=== PATIENT | female | born 1985 | race Caucasian/White ===

== ENCOUNTER 2016-10-03 06:53 | Emergency (ER) | payer OTHER, MEDICAID ==
[~2016-10-03] VITALS: Ht 170.2 cm; Wt 84.0 kg
[~2016-10-03 06:53] MED LIST: ALBU8I INH; METH5SOL3 PO; PRED20 PO; PREN0.01 PO; UNIS25TA2 PO; XANA0.5T PO
[2016-10-03] MEDS ORDERED: SODIUM CHLOR 0.9% 1000 ML INJ 1,000 ML IV SCH (07:08)
[2016-10-03 07:10] VITALS: BP 147/85; PULSE 69; RESP 14; TEMP 97.7; O2SAT 98
[2016-10-03] MEDS ORDERED: METH40TA PO (07:12)
[2016-10-03 07:15] VITALS: O2SAT 98
[2016-10-03] MEDS ORDERED: SODIUM CHLORIDE 0.9% FLUSH 10 ML FLUSH IVF PRN (07:15)
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
[2016-10-03 08:16] LABS: AUTOMATED NEUTROPHIL # 7.8 TH/MM3 (1.8-7.7); BASOPHIL # 0.6 TH/MM3 (0-0.2); BASOPHIL % 5.9 % (0.0-2.0); EOSINOPHIL # 0.1 TH/MM3 (0-0.4); EOSINOPHIL % 0.7 % (0.0-4.0); LYMPH % 16.9 % (9.0-44.0); LYMPHOCYTE # 1.9 TH/MM3 (1.0-4.8); MEAN CORPUSCULAR HEMOGLOBIN 28.3 PG (27.0-34.0); MEAN CORPUSCULAR HGB CONC 33.7 % (32.0-36.0); MONO % 5.5 % (0.0-8.0); PLATELET COUNT 226 TH/MM3 (150-450); RED BLOOD COUNT 4.65 MIL/MM3 (4.00-5.30); RED CELL DISTRIBUTION WIDTH 12.1 % (11.6-17.2)
[2016-10-03 08:22] LABS: HEMO FLAGS AUTO DIFF
[2016-10-03 08:25] LABS: CHLORIDE 104 MEQ/L (98-107); SODIUM (NA) 135 MEQ/L (136-145)
[2016-10-03 08:28] LABS: ANION GAP 5 MEQ/L (5-15); BICARBONATE 26.5 MEQ/L (21.0-32.0); BLOOD UREA NITROGEN 17 MG/DL (7-18)
[2016-10-03 08:29] LABS: APTT (PATIENT) 26.6 SEC (24.3-30.1); PROTHROMBIN TIME - PATIENT 10.8 SEC (9.8-11.6)
[2016-10-03 08:31] LABS: ALCOHOL LESS THAN 3 MG/DL (0-5); GLOMERULAR FILTRATION RATE 98 ML/MIN (>89)
[2016-10-03 08:54] LABS: EOSINOPHILS 1 % (0-4); NEUTROPHIL # MANUAL DIFF 8.8 TH/MM3 (1.8-7.7); POLYS (SEG NEUTROPHILS) 80 % (16-70); SCAN/DIFF FINAL DIFF MANUAL; WBC DIFF SAMPLE 100
--- NOTE | 2016-10-03 08:58 | PD ---
Data Data Last Documented VS Vital Signs Date Time Temp Pulse Resp B/P (MAP) Pulse Ox O2 Delivery O2 Flow Rate FiO2 10/03/16 07:15 98 Nasal Cannula 2.00 10/03/16 07:10 97.7 69 14 147/85 (105) Orders Orders Basic Metabolic Panel (Bmp) (10/03/16 07:08) Complete Blood Count With Diff (10/03/16 07:08) Prothrombin Time / Inr (Pt) (10/03/16 07:08) Act Partial Throm Time (Ptt) (10/03/16 07:08) Type And Screen (10/03/16 07:08) Alcohol (Ethanol) (10/03/16 07:08) Urinalysis - C+S If Indicated (10/03/16 07:08) Drug Screen, Random Urine (10/03/16 07:08) Chest, Single Ap (10/03/16 07:08) Ct Brain W/O Iv Contrast(Rout) (10/03/16 07:08) Ct Cerv Spine W/O Contrast (10/03/16 07:08) Ct Abd/Pel W Iv Contrast(Rout) (10/03/16 07:08) Ct Thorax/ Chest W Iv Contrast (10/03/16 07:08) Iv Access Insert/Monitor (10/03/16 07:08) Ecg Monitoring (10/03/16 07:08) Oximetry (10/03/16 07:08) Oxygen Administration (10/03/16 07:08) Remove Backboard (10/03/16 07:08) Sodium Chlor 0.9% 1000 Ml Inj (Ns 1000 M (10/03/16 07:08) Sodium Chloride 0.9% Flush (Ns Flush) (10/03/16 07:15) Wrist, Complete ([id number]) (10/03/16 07:08) Hip, Uni(Ap&Lat) W Ap Pelvis (10/03/16 07:08) Resp Lab Draw Arterial Punctur (10/03/16 ) Labs Laboratory Tests Test 10/03/16 08:10 White Blood Count 11.0 TH/MM3 Red Blood Count 4.65 MIL/MM3 Hemoglobin 13.1 GM/DL Hematocrit 39.0 % Mean Corpuscular Volume 84.0 FL Mean Corpuscular Hemoglobin 28.3 PG Mean Corpuscular Hemoglobin Concent 33.7 % Red Cell Distribution Width 12.1 % Platelet Count 226 TH/MM3 Mean Platelet Volume 8.1 FL Neutrophils (%) (Auto) 71.0 % Lymphocytes (%) (Auto) 16.9 % Monocytes (%) (Auto) 5.5 % Eosinophils (%) (Auto) 0.7 % Basophils (%) (Auto) 5.9 % Neutrophils # (Auto) 7.8 TH/MM3 Lymphocytes # (Auto) 1.9 TH/MM3 Monocytes # (Auto) 0.6 TH/MM3 Eosinophils # (Auto) 0.1 TH/MM3 Basophils # (Auto) 0.6 TH/MM3 CBC Comment AUTO DIFF Differential Total Cells Counted 100 Neutrophils % (Manual) 80 % Lymphocytes % 15 % Monocytes % 4 % Eosinophils % 1 % Neutrophils # (Manual) 8.8 TH/MM3 Differential Comment FINAL DIFF MANUAL Prothrombin Time 10.8 SEC Prothromb Time International Ratio 1.0 RATIO Activated Partial Thromboplast Time 26.6 SEC Blood Urea Nitrogen 17 MG/DL Creatinine 0.70 MG/DL Random Glucose 107 MG/DL Calcium Level 8.7 MG/DL Sodium Level 135 MEQ/L Potassium Level 4.0 MEQ/L Chloride Level 104 MEQ/L Carbon Dioxide Level 26.5 MEQ/L Anion Gap 5 MEQ/L Estimat Glomerular Filtration Rate 98 ML/MIN Ethyl Alcohol Level LESS THAN 3 MG/DL MDM Supervised Visit with ANIRUDH: No Narrative Course Because of difficult IV access, was asked by my colleague Dr. Richards to place an ultrasound-guided IV. Procedures Procedure Narrative Ultrasound-guided peripheral IV: Using the linear ultrasound probe for guidance, a 20-gauge IV catheter was placed in the left arm. Site prepped with ChloraPrep prior to insertion. Tolerated well. No complications. Jarrod Dennis MD Oct 03, 2016 08:58
[2016-10-03 09:00] VITALS: BP 114/67; PULSE 61; RESP 16; O2SAT 98
[2016-10-03] MEDS ORDERED: IOHEXOL 350 MG/ML 10 ML VIAL (for RAD DIAG) IVCONTRAST ONE (09:28)
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
[2016-10-03] MEDS ORDERED: IBUP-1129 PO (10:30)
[2016-10-03] MEDS ORDERED: IBUPROFEN 600 MG TAB PO ONE (11:30)
[2016-10-03 11:45] VITALS: BP 101/57; PULSE 74; RESP 18; O2SAT 98
== END 2016-10-03 11:50 | disposition home or self-care (01) ==
LOC: PHED 06:53
DX: S32.039A Unspecified fracture of third lumbar vertebra, initial encounter for closed fracture (principal); S30.810A Abrasion of lower back and pelvis, initial encounter; M25.551 Pain in right hip; M25.531 Pain in right wrist; V28.5XXA Motorcycle passenger injured in noncollision transport accident in traffic accident, initial encounter
CPT/HCPCS: 36600; 70450; 71010; 71260; 72125; 73110; 73502; 74177; 80048; 80307; 85007; 85027; 85610; 85730; 86850; 86900; 86901; 96360; 96361; 99285; J7030; Q9967

== ENCOUNTER 2017-04-02 18:11 | Emergency (ER) | payer MEDICAID ==
[~2017-04-02] VITALS: Ht 170.2 cm; Wt 98.0 kg
[~2017-04-02 18:11] MED LIST changes: -ALBU8I INH; +IBUP-1129 PO; +METH40TA PO; -METH5SOL3 PO; -PRED20 PO; -PREN0.01 PO; -UNIS25TA2 PO; -XANA0.5T PO
[2017-04-02 18:18] VITALS: BP 148/91; PULSE 102; RESP 19; TEMP 100.4; O2SAT 98
[2017-04-02] MEDS ORDERED: METH10TA PO (18:32)
--- NOTE | 2017-04-02 18:35 | PD ---
HPI Chief Complaint: Cold / Flu Symptoms Time Seen by Provider: 18:35 Travel History International Travel<30 days: No Contact w/Intl Traveler<30days: No Traveled to known affect area: No History of Present Illness HPI 31-year-old female came to the emergency room with history of shortness of breath, cough, fever and generalized myalgia for past almost 1 week. Patient says that her daughter who has been sick with similar symptoms and she has been taking care of her. Patient also developed wheezing. She does have history of asthma and her friend that her both oral her nebulizer. She had a temperature of 100.4 in triage. She took ibuprofen about 3-4 hours ago. 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 She is on methadone currently. Noticed that she has been developing some lesions and scabs all over her body. She denied using any IV drugs now. [facility] Past Medical History Narrative Medical List of her past medical, surgical, social and family history is reviewed from the nursing note. Asthma: Yes Blood Disorders: No Anxiety: Yes Depression: Yes Cancer: No Cardiovascular Problems: No Diminished Hearing: No Endocrine: No Genitourinary: No Hepatitis: Yes (C) Immune Disorder: No Musculoskeletal: Yes Neurologic: No Psychiatric: No Reproductive: Yes (leep x2) Respiratory: Yes (ASTHMA) Immunizations Current: Yes Seizures: Yes Tetanus Vaccination: < 5 Years Influenza Vaccination: No ?: Not LMP: 10 DAYS AGO : 3 Para: 1 Miscarriage: 1 : 1 Past Surgical History Abdominal Surgery: No Appendectomy: Yes Cardiac Surgery: No Section: Yes Ear Surgery: No Endocrine Surgery: No Eye Surgery: Yes (Sx correction of "lazy eyes" as child) Genitourinary Surgery: No Gynecologic Surgery: Yes (Leep X's 2) Hysterectomy: Yes Oral Surgery: No Thoracic Surgery: No Other Surgery: Yes (REMOVAL OF ABNORMAL CELLS) Social History Alcohol Use: No Tobacco Use: No Substance Use: No (Former IVDA) Allergies-Medications (Allergen,Severity, Reaction): Coded Allergies: penicillin G (Unverified Allergy, Severe, Hives, 04/07/17) codeine (Unverified Adverse Reaction, Severe, N/V, BAUTISTA, 04/07/17) Comments List of her allergies reviewed from the nursing note. Reported Meds & Prescriptions Reported Meds & Active Scripts Active Ventolin Hfa 18 GM Inh (Albuterol Sulfate) 90 Mcg/Act Aer 2 Puff INH Q4-6H PRN Albuterol Neb (Albuterol Sulfate) 2.5 Mg/0.5 Ml Neb 2.5 Mg NEB Q6HR NEB Note: The Albuterol Sulfate Inhalation Solution is concentrated and must be diluted. Read complete instructions carefully before using. Narrative Medication List of her home medications reviewed from the nursing note. Review of Systems Except as stated in HPI: all other systems reviewed are Neg General / Constitutional: Positive: Fever, Chills Respiratory: Positive: Shortness of Breath Musculoskeletal: Positive: Myalgias Physical Exam Narrative GENERAL: Awake, alert, mild distress SKIN: Focused skin assessment warm/dry. Circular scabs on the chest and bilateral upper extremities that are more than 5 in number HEAD: Atraumatic. Normocephalic. EYES: Pupils equal and round. No scleral icterus. No injection or drainage. ENT: No nasal bleeding or discharge. Mucous membranes pink and moist. NECK: Trachea midline. No JVD. CARDIOVASCULAR: Regular rate and rhythm. No murmur appreciated. RESPIRATORY: Decreased air entry bilaterally with end expiratory wheeze GASTROINTESTINAL: Abdomen soft, non-tender, nondistended. Hepatic and splenic margins not palpable. MUSCULOSKELETAL: No obvious deformities. No clubbing. No cyanosis. No edema. NEUROLOGICAL: Awake and alert. No obvious cranial nerve deficits. Motor grossly within normal limits. Normal speech. PSYCHIATRIC: Appropriate mood and affect; insight and judgment normal. Data Data Last Documented VS Orders Orders Influenzae A/B Antigen (04/02/17 18:41) Acetaminophen (Tylenol) (04/02/17 18:45) Albuterol Neb (Albuterol Neb) (04/02/17 18:45) Ed Discharge Order (04/02/17 19:38) [facility] Medical Decision Making Medical Screen Exam Complete: Yes Emergency Medical Condition: Yes Medical Record Reviewed: Yes Differential Diagnosis Influenza, viral illness, staph infection, reactive airway disease Narrative Course 7:34 PM patient was given 2 albuterol nebulizer. I've given her Tylenol for the fever. Her flu swab is negative. I'll discharge her home on prescription and instructions. Procedures EKG Prior to Arrival: No Diagnosis Primary Impression: Viral illness Additional Impression: Asthma exacerbation Qualified Codes: J45.41 - Moderate persistent asthma with (acute) exacerbation Referrals: Primary Care Physician Additional Instructions: Follow-up with your primary care physician. Treated for viral infection symptomatically which means may have a fever you can take Tylenol/Motrin/ ibuprofen/Advil. Drink lots of fluid. Take the nebulizer as per the prescription direction. Return to ER if condition worsens or any other new concerns. Med/Other Pt SpecificInfo: Prescription(s) given Scripts Albuterol 18 GM Inh (Ventolin Hfa 18 GM Inh) 90 Mcg/Act Aer 2 PUFF INH Q4-6H Y for SHORTNESS OF BREATH, #1 INHALER 0 Refills Prov: Rosemarie Deng MD 04/02/17 Albuterol Neb (Albuterol Neb) 2.5 Mg/0.5 Ml Neb 2.5 MG NEB Q6HR NEB, #30 BOX Note: The Albuterol Sulfate Inhalation Solution is concentrated and must be diluted. Read complete instructions carefully before using. Prov: Rosemarie Deng MD 04/02/17 Disposition: 01 DISCHARGE HOME Condition: Stable Rosemarie Deng MD Apr 02, 2017 18:35
[2017-04-02] MEDS ORDERED: ACETAMINOPHEN 325 MG TAB PO ONE (18:45)
[2017-04-02] MEDS: RESP: ALBUTEROL 2.5 MG/3 ML NEB (SCH) INH (18:58)
[2017-04-02 19:05] VITALS: BP 134/72; PULSE 94; RESP 16; O2SAT 97
[2017-04-02] MEDS ORDERED: ALBU.5I NEB (19:38)
[2017-04-02] MEDS ORDERED: VENTAER INH (19:55)
[2017-04-02 20:00] VITALS: BP 146/72
== END 2017-04-02 20:05 | disposition home or self-care (01) ==
LOC: PHED 18:11
DX: B34.9 Viral infection, unspecified (principal); J45.41 Moderate persistent asthma with (acute) exacerbation; F41.9 Anxiety disorder, unspecified; F32.9 Major depressive disorder, single episode, unspecified; B19.20 Unspecified viral hepatitis C without hepatic coma
CPT/HCPCS: 87804; 94640; 94664; 99283; J7613

== ENCOUNTER 2017-04-07 20:01 | Emergency (ER) | payer MEDICAID ==
[~2017-04-07] VITALS: Ht 170.2 cm; Wt 94.7 kg
[~2017-04-07 20:01] MED LIST changes: +ALBU.5I NEB; -IBUP-1129 PO; +METH10TA PO; -METH40TA PO; +VENTAER INH
[2017-04-07 20:20] VITALS: BP 126/83; PULSE 117; RESP 18; TEMP 100.1; O2SAT 92
--- NOTE | 2017-04-07 21:41 | PD ---
HPI Chief Complaint: Fever Time Seen by Provider: 21:32 Travel History International Travel<30 days: No Contact w/Intl Traveler<30days: No Traveled to known affect area: No History of Present Illness HPI 31-year-old female with history of asthma presents to the emergency department prior to her transfer and for evaluation of progressively worsening symptoms over the past 7 days with fever chills myalgias arthralgias cough congestion wheezing and generalized weakness. Patient states she was seen in the emergency department partially 4 days ago flu test was negative she was given a refill on her inhaler and states over the past 2 days she is continued to have fever of 10 2F daily and has had decreased urine output even though she states she has increased her oral hydration. Patient also has history of ADHD mood disorder and anxiety. Patient states she has been taking her medications as prescribed. Patient reports she recently discontinued methadone use. PFSH Past Medical History Narrative Medical Asthma ADHD mood disorder seizure; LEEP; no tobacco; nursing notes reviewed Asthma: Yes Blood Disorders: No Anxiety: Yes Depression: Yes Cancer: No Cardiovascular Problems: No Diminished Hearing: No Endocrine: No Genitourinary: No Hepatitis: Yes (C) Immune Disorder: No Musculoskeletal: Yes Neurologic: No Psychiatric: No Reproductive: Yes (leep x2) Respiratory: Yes (ASTHMA) Immunizations Current: Yes Seizures: Yes ?: Unknown LMP: 03/15/17 : 3 Para: 1 Miscarriage: 1 : 1 Past Surgical History Abdominal Surgery: No Appendectomy: Yes Cardiac Surgery: No Section: Yes Ear Surgery: No Endocrine Surgery: No Eye Surgery: Yes (Sx correction of "lazy eyes" as child) Genitourinary Surgery: No Gynecologic Surgery: Yes (Leep X's 2) Hysterectomy: Yes Oral Surgery: No Thoracic Surgery: No Other Surgery: Yes (REMOVAL OF ABNORMAL CELLS) Social History Alcohol Use: No Tobacco Use: No Substance Use: No (Former IVDA) Allergies-Medications (Allergen,Severity, Reaction): Coded Allergies: penicillin G (Unverified Allergy, Severe, Hives, 04/07/17) codeine (Unverified Adverse Reaction, Severe, N/V, BAUTISTA, 04/07/17) Reported Meds & Prescriptions Reported Meds & Active Scripts Active Ventolin Hfa 18 GM Inh (Albuterol Sulfate) 90 Mcg/Act Aer 2 Puff INH Q4-6H PRN Albuterol Neb (Albuterol Sulfate) 2.5 Mg/0.5 Ml Neb 2.5 Mg NEB Q6HR NEB Note: The Albuterol Sulfate Inhalation Solution is concentrated and must be diluted. Read complete instructions carefully before using. Review of Systems Except as stated in HPI: all other systems reviewed are Neg General / Constitutional: Positive: Fever, Chills HENT: Positive: Congestion Cardiovascular: No: Chest Pain or Discomfort Respiratory: Positive: Cough, Shortness of Breath, Wheezing Gastrointestinal: Positive: Nausea, No: Vomiting, Abdominal Pain Genitourinary: Positive: Frequency, Decreased Urinary Output Musculoskeletal: Positive: Myalgias, Arthralgias Skin: No Rash Neurologic: Positive: Weakness, No: Seizures Psychiatric: No: Anxiety Hematologic/Lymphatic: No: Lymph Node Enlargement Physical Exam Narrative GENERAL: Well-developed well-nourished female no acute distress or respiratory distress SKIN: Warm and dry. HEAD: Normocephalic. EYES: No scleral icterus. No injection or drainage. NECK: Supple, trachea midline. No JVD or lymphadenopathy. CARDIOVASCULAR: Increased regular rate and rhythm without murmurs, gallops, or rubs. RESPIRATORY: Breath sounds equal bilaterally few expiratory wheezes. No accessory muscle use. GASTROINTESTINAL: Abdomen soft, non-tender, nondistended. MUSCULOSKELETAL: No cyanosis, or edema. BACK: Nontender without obvious deformity. No CVA tenderness. Data Data Last Documented VS Vital Signs Date Time Temp Pulse Resp B/P (MAP) Pulse Ox O2 Delivery O2 Flow Rate FiO2 04/08/17 02:46 99 16 107/79 (88) 95 04/08/17 01:30 99.8 Room Air Orders Orders Complete Blood Count With Diff (04/07/17 21:32) Comprehensive Metabolic Panel (04/07/17 21:32) Group A Rapid Strep Screen (04/07/17 21:32) Influenzae A/B Antigen (04/07/17 21:32) Chest, Single Ap (04/07/17 21:32) Iv Access Insert/Monitor (04/07/17 21:32) Oximetry (04/07/17 21:32) Sodium Chloride 0.9% Flush (Ns Flush) (04/07/17 21:45) Sodium Chlor 0.9% 1000 Ml Inj (Ns 1000 M (04/07/17 21:45) Ed Urine Pregnancytest Poc (04/07/17 21:32) Urinalysis - C+S If Indicated (04/07/17 21:32) Albuterol-Ipratropium Neb (Duoneb Neb) (04/07/17 21:45) Blood Culture (04/07/17 21:32) Lactic Acid (04/07/17 21:32) Strep Culture (Group A) (04/07/17 22:20) Ondansetron Odt (Zofran Odt) (04/08/17 00:30) Acetaminophen (Tylenol) (04/08/17 00:30) Ed Discharge Order (04/08/17 03:06) Labs Laboratory Tests Test 04/07/17 22:10 04/07/17 23:21 Urine Color YELLOW Urine Turbidity CLEAR Urine pH 5.0 Urine Specific Gorman 1.024 Urine Protein TRACE mg/dL Urine Glucose (UA) NEG mg/dL Urine Ketones 15 mg/dL Urine Occult Blood NEG Urine Nitrite NEG Urine Bilirubin NEG Urine Leukocyte Esterase NEG Urine WBC 0-2 /hpf Urine Squamous Epithelial Cells 0-5 /hpf Urine Amorphous Sediment SMALL Urine Mucus FEW /lpf Microscopic Urinalysis Comment CULT NOT INDICATED White Blood Count 10.9 TH/MM3 Red Blood Count 4.55 MIL/MM3 Hemoglobin 12.6 GM/DL Hematocrit 37.8 % Mean Corpuscular Volume 83.0 FL Mean Corpuscular Hemoglobin 27.7 PG Mean Corpuscular Hemoglobin Concent 33.4 % Red Cell Distribution Width 12.2 % Platelet Count 172 TH/MM3 Mean Platelet Volume 8.3 FL Neutrophils (%) (Auto) 69.1 % Lymphocytes (%) (Auto) 20.9 % Monocytes (%) (Auto) 5.9 % Eosinophils (%) (Auto) 0.0 % Basophils (%) (Auto) 4.1 % Neutrophils # (Auto) 7.6 TH/MM3 Lymphocytes # (Auto) 2.3 TH/MM3 Monocytes # (Auto) 0.6 TH/MM3 Eosinophils # (Auto) 0.0 TH/MM3 Basophils # (Auto) 0.4 TH/MM3 CBC Comment DIFF FINAL Differential Comment Blood Urea Nitrogen 8 MG/DL Creatinine 0.56 MG/DL Random Glucose 92 MG/DL Total Protein 8.1 GM/DL Albumin 3.4 GM/DL Calcium Level 8.1 MG/DL Alkaline Phosphatase 60 U/L Aspartate Amino Transf (AST/SGOT) 56 U/L Alanine Aminotransferase (ALT/SGPT) 48 U/L Total Bilirubin 0.4 MG/DL Sodium Level 131 MEQ/L Potassium Level 3.4 MEQ/L Chloride Level 97 MEQ/L Carbon Dioxide Level 24.5 MEQ/L Anion Gap 10 MEQ/L Estimat Glomerular Filtration Rate 126 ML/MIN Lactic Acid Level 0.7 mmol/L MDM Medical Decision Making Medical Screen Exam Complete: Yes Emergency Medical Condition: Yes Medical Record Reviewed: Yes Interpretation(s) Lactic acid 0.7, not elevated [id number] hCG negative Rapid strep antigen: Negative Last Impressions Chest X-Ray 04/07/172131 Signed Impressions: Service Date/Time: Friday, April 07, 2017 21:42 - CONCLUSION: No acute cardiopulmonary abnormality is identified. Mert Pagan MD CBC & BMP Diagram 04/07/17 23:21 Total Protein 8.1, Albumin 3.4, Calcium Level 8.1 L, Alkaline Phosphatase 60, Aspartate Amino Transf (AST/SGOT) 56 H, Alanine Aminotransferase (ALT/SGPT) 48, Total Bilirubin 0.4 Vital Signs Date Time Temp Pulse Resp B/P (MAP) Pulse Ox O2 Delivery O2 Flow Rate FiO2 04/08/17 02:46 99 16 107/79 (88) 95 04/08/17 01:45 16 04/08/17 01:30 99.8 104 16 113/68 (83) 94 Room Air 04/08/17 00:28 99.7 104 18 111/62 (78) 95 Room Air 04/07/17 23:25 104 18 117/65 (82) 96 Room Air 04/07/17 22:25 109 18 140/84 (102) 95 Room Air 04/07/17 21:45 104 18 94 Room Air 04/07/17 21:25 18 92 Room Air 04/07/17 20:20 100.1 117 18 126/83 (97) 92 Influenza A/B antigen: Negative Differential Diagnosis Viral syndrome, pneumonia, bronchitis, influenza, renal insufficiency, sirs, sepsis, dehydration, electrolyte disturbance, UTI, Narrative Course IV access obtained specimens collected and sent for resulting; DuoNeb updraft administered along with bolus of normal saline Patient resting comfortably taking oral hydration well patient very difficult IV access but not unstable enough to support insertion of central line will obtain specimens to arterial stick and will assess patient after oral hydration and diagnostic results Lab values found to be in normal range Patient taking oral hydration well resting comfortably voicing no concerns or complaints Patient stable for outpatient management Diagnosis Primary Impression: Bronchitis Referrals: Primary Care Physician call for appointment Patient Instructions: General Instructions Additional Instructions: Increase fluid hydration Take acetaminophen as needed for fever 100.4F or greater Take ibuprofen every 6-8 hours as needed for fever 100.4F or greater Do not restart methadone while taking oral antibiotic doxycycline or Zofran for nausea and/or vomiting Complete Medrol Dosepak and use the rescue inhaler as needed for wheezing or shortness of breath Return to the emergency department for any concerns or change in condition Disposition: 01 DISCHARGE HOME Condition: Stable Akiko Vega MD Apr 07, 2017 21:41
[2017-04-07 21:45] VITALS: PULSE 104; RESP 18; O2SAT 94
[2017-04-07] MEDS ORDERED: SODIUM CHLORIDE 0.9% FLUSH 10 ML FLUSH IVF PRN (21:45)
[2017-04-07] MEDS ORDERED: SODIUM CHLOR 0.9% 1000 ML INJ 1,000 ML IV ONE (21:45)
[2017-04-07] MEDS ORDERED: RESP: ALBUTEROL 2.5 MG/IPRATROPIUM 0.5 MG NEB (SCH) NEB ONE (21:45)
--- NOTE | 2017-04-07 22:00 | RADRPT ---
EXAM DATE/TIME: 04/07/2017 21:42 [place] COMPARISON: CHEST SINGLE AP, October 03, 2016, 7:32. INDICATIONS : Fever and cough. MEDICAL HISTORY : Gastroesophageal reflux disease. SURGICAL HISTORY : Appendectomy. LEEP. ENCOUNTER: Initial ACUITY: 1 week PAIN SCORE: 8/10 LOCATION: Bilateral chest superior FINDINGS: Portable AP view of the chest demonstrates a normal-sized cardiac silhouette. No effusion, consolidat ion, or pneumothorax is visualized. The bones and soft tissues demonstrate no acute abnormality. CONCLUSION: No acute cardiopulmonary abnormality is identified. Mert Pagan MD on April 07, 2017 at 21:58 Board Certified Radiologist. This report was verified electronically.
[2017-04-07 22:25] VITALS: BP 140/84; PULSE 109; RESP 18; O2SAT 95
[2017-04-07 23:05] LABS: BLOOD, URINE NEG (NEG); GLUCOSE,URINE NEG (NEG); KETONE, URINE 15 mg/dL (NEG); NITRITE,URINE NEG (NEG); URINE LEUKOCYTE ESTERASE NEG (NEG)
[2017-04-07 23:19] LABS: BILIRUBIN, URINE NEG (NEG)
[2017-04-07 23:25] VITALS: BP 117/65; PULSE 104; RESP 18; O2SAT 96
[2017-04-07 23:28] LABS: URINE COLOR YELLOW (YELLW/STRAW)
[2017-04-07 23:30] LABS: SQUAMOUS EPITHELIAL CELL URINE 0-5 /hpf (0-5); WBC, URINE 0-2 /hpf (0-5)
[2017-04-07 23:31] LABS: AMORPHOUS SEDIMENT, URINE SMALL; MUCUS URINE FEW /lpf (OCC)
[2017-04-07 23:40] LABS: AUTOMATED NEUTROPHIL # 7.6 TH/MM3 (1.8-7.7); BASOPHIL # 0.4 TH/MM3 (0-0.2); BASOPHIL % 4.1 % (0.0-2.0); HEMATOCRIT 37.8 % (35.0-46.0); HEMOGLOBIN 12.6 GM/DL (11.6-15.3); LYMPH % 20.9 % (9.0-44.0); LYMPHOCYTE # 2.3 TH/MM3 (1.0-4.8); MEAN CORPUSCULAR HEMOGLOBIN 27.7 PG (27.0-34.0); MEAN CORPUSCULAR HGB CONC 33.4 % (32.0-36.0); MEAN PLATELET VOLUME 8.3 FL (7.0-11.0); MONO % 5.9 % (0.0-8.0); MONOCYTE # 0.6 TH/MM3 (0-0.9); NEUT % 69.1 % (16.0-70.0); PLATELET COUNT 172 TH/MM3 (150-450); RED BLOOD COUNT 4.55 MIL/MM3 (4.00-5.30); RED CELL DISTRIBUTION WIDTH 12.2 % (11.6-17.2); WHITE BLOOD COUNT 10.9 TH/MM3 (4.0-11.0)
[2017-04-07 23:51] LABS: CHLORIDE 97 MEQ/L (98-107); SODIUM (NA) 131 MEQ/L (136-145)
[2017-04-07 23:54] LABS: CALCIUM 8.1 MG/DL (8.5-10.1)
[2017-04-07 23:55] LABS: ALBUMIN 3.4 GM/DL (3.4-5.0); BICARBONATE 24.5 MEQ/L (21.0-32.0); BLOOD UREA NITROGEN 8 MG/DL (7-18); GLUCOSE,RANDOM 92 MG/DL (74-106)
[2017-04-07 23:58] LABS: ALT (GPT) 48 U/L (10-53); AST (GOT) 56 U/L (15-37); CREATININE 0.56 MG/DL (0.50-1.00); GLOMERULAR FILTRATION RATE 126 ML/MIN (>89)
[2017-04-07 23:59] LABS: TOTAL BILIRUBIN ADULT 0.4 MG/DL (0.2-1.0)
[2017-04-08] LABS: TOTAL PROTEIN 8.1 GM/DL (6.4-8.2)
[2017-04-08 00:01] LABS: ALKALINE PHOSPHATASE 60 U/L (45-117)
[2017-04-08 00:28] VITALS: BP 111/62; PULSE 104; RESP 18; TEMP 99.7; O2SAT 95
[2017-04-08] MEDS ORDERED: ONDANSETRON ODT 4 MG TAB PO ONE (00:30)
[2017-04-08] MEDS ORDERED: ACETAMINOPHEN 325 MG TAB PO ONE (00:30)
[2017-04-08 01:30] VITALS: BP 113/68; PULSE 104; RESP 16; TEMP 99.8; O2SAT 94
[2017-04-08 01:45] VITALS: RESP 16
[2017-04-08 02:46] VITALS: BP 107/79
== END 2017-04-08 02:50 | disposition home or self-care (01) ==
LOC: PHED 20:01
DX: J40 Bronchitis, not specified as acute or chronic (principal); K21.9 Gastro-esophageal reflux disease without esophagitis; F32.9 Major depressive disorder, single episode, unspecified; F41.9 Anxiety disorder, unspecified; F90.9 Attention-deficit hyperactivity disorder, unspecified type; Z88.0 Allergy status to penicillin; Z88.5 Allergy status to narcotic agent; Z79.899 Other long term (current) drug therapy
CPT/HCPCS: 36600; 71045; 80053; 81001; 83605; 84703; 85025; 87040; 87081; 87804; 87880; 94664; 99284